=== PATIENT | female | born 1985 | race Caucasian/White ===

== ENCOUNTER 2021-02-23 20:08 | Emergency (ER) | payer OTHER, SELFPAY ==
--- NOTE | ~2021-02-23 | XR_ITS ---
EXAMINATION: XR HAND, RIGHT CLINICAL INFORMATION: Hit with softball with laceration and pain COMPARISON: 09/29/2019 TECHNIQUE: PA, lateral, and oblique views of the right hand. FINDINGS: The bones and soft tissues are normal. No fracture. Alignment is anatomic. Joint spaces are maintained. No erosions or soft tissue calcifications. XR/XR hand RT min 3V IMPRESSION: Normal right hand.
[2021-02-23 20:18] VITALS: BP 114/58; PULSE 90; RESP 18; TEMP 37.3; O2SAT 98; BMI 22.1
--- NOTE | 2021-02-23 21:29 | ED_ITS ---
HPI - Wound/Laceration General Chief Complaint: Wound/Laceration Stated Complaint: laceration Source: patient Mode of arrival: ambulatory Limitations: no limitations History of Present Illness HPI narrative: 35-year-old female with no significant past medical history presents with a laceration between the 4th and 5th fingers after a softball injury. Patient has a prior injury to the pinky finger years ago. Patient states it is difficult to move the finger and there is significant bruising and swelling to the 5th finger. She does not describe any other injuries, does not recall when her last Tdap vaccine was updated. Onset (ago): hour(s) (Within the hour of arrival) Extremity Location: right: hand (Laceration between 4th and 5th fingers) Place: outdoors Patient tetanus UTD: No Context: accidental Associated symptoms: pain Treatments prior to arrival: cold therapy and bandage Related Data Previous Rx's Medication Instructions Recorded oxycodone 5 mg PO Q8H PRN #7 cap 02/23/21 Allergies Allergy/AdvReac Type Severity Reaction Status Date / Time cimetidine [From [facility]] Allergy Unknown NAUSEA Verified 02/23/21 21:32 Review of Systems Review of Systems: Constitutional: No Fever, No Chills ENT/Mouth: No Ear Pain, No Hoarseness, No sore throat Eyes: No Eye Pain, No Swelling, No Redness, No Foreign Body Cardiovascular: No Chest Pain, No SOB Respiratory: No Cough, No Dyspnea Gastrointestinal: No Nausea, No Vomiting, No Diarrhea, No abdominal Pain Genitourinary: No Dysuria, No Hematuria Musculoskeletal: positive 4th and 5th right finger pain and swelling, No Myalgias Skin: Positive laceration between 4th and 5th finger of the right hand, No rash Neuro: No Weakness, No Numbness, No Paresthesias, No Loss of Consciousness, No Dizziness, No Headache Psych: No Anxiety/Panic, No Depression Heme/Lymph: no easy bruising, no Lymphadenopathy Endocrine: No Polyuria, No Polydipsia Yes all other systems are reviewed and are negative [facility] Past Medical History Attestation statement: The following information was validated with the patient. Source: old records reviewed Social History Social History Advance Directives: No Advance Directives Information Provided: No Physical Exam Vital Signs: Vital Signs: Last Vital Signs Temp 99.1 F 02/23/21 20:18 Pulse 90 02/23/21 20:18 Resp 18 02/23/21 20:18 BP 114/58 L 02/23/21 20:18 Pulse Ox 98 02/23/21 20:18 Body Mass Index 22.1 Appearance: Alert. Oriented X3. Mild distress. Eyes: Pupils equal, round and reactive to light. ENT: Pharynx normal. Neck: Normal inspection. Neck supple. CVS: Normal heart rate and rhythm. Pulses normal. Respiratory: No respiratory distress. Breath sounds normal. Abdomen: Soft and nontender. Skin: Skin warm and dry. Normal skin color. Normal skin turgor. Extremities: Full range of motion to all digits on right hand, no indication of tendon injury, strength 5/5, 2 cm laceration between the 4th and 5th fingers at the web space, no snuffbox tenderness, full range of motion to the wrist elbow and shoulder. Neuro: No motor deficit. No sensory deficit. Course Course Course Narrative: 35-year-old female with no significant past medical history presents with a laceration between 4th and 5th fingers on the right side with swelling and bruising noted to the 4th and 5th fingers. X-rays are negative for fracture. Prepped and draped in sterile fashion, refer to procedure note for full details, patient tolerated procedure well. Detailed description of wound care instructions. The injury is quite significant with bruising to 4th and 5th fingers radiating down to the metacarpals, will order oxycodone for home use. Detailed description regarding risks and benefits of opioids, patient does understand the dangers of taking this medication. Also referred to Dr. Funez, if pain persists or if she is unable to regain full range of motion she will call and request an appointment. Approximately 30 minutes after laceration repair, full range of motion, strength 5/5, and brisk capillary refill noted. No neurological deficits. Patient verbalized understanding of and agrees plan of care discharge home. Procedures Laceration Laceration 1: Site: hand Side (If applicable): right Size (cm): 2 Description: linear Depth: simple, single layer Local Anesthetic: lidocaine 2% Amount of anesthesia used (mL): 6 Pre-repair: wound explored, irrigated extensively and deep structures intact Skin layer closed with: nylon Size (cm): 4-0 Number of sutures: 6 Technique: simple, interrupted MDM - Wound/Laceration Differential Diagnosis Differential diagnosis: Likely laceration Medical Records Attestation: I reviewed the patient's medical records. Lab Data Attestation: I reviewed the patient's lab results. Imaging Data Right hand x-ray: Attestation: I personally reviewed and interpreted this imaging study as follows: Radiologist's impression: EXAMINATION: XR HAND, RIGHT CLINICAL INFORMATION: Hit with softball with laceration and pain COMPARISON: 09/29/2019 TECHNIQUE: PA, lateral, and oblique views of the right hand. FINDINGS: The bones and soft tissues are normal. No fracture. Alignment is anatomic. Joint spaces are maintained. No erosions or soft tissue calcifications. XR/XR hand RT min 3V IMPRESSION: Normal right hand. Discharge Plan Discharge Clinical Impression: Laceration Patient Disposition: Home, Self-Care Instructions: Finger Laceration (ED) Additional Instructions: You were evaluated for laceration sustained from a softball injury. We placed 6 sutures between your 4th and 5th fingers to your right hand. Please keep sutures in place for 10-14 days. You may return to any healthcare provider to have sutures removed. I prescribed oxycodone for pain management. This medication is a narcotic and has high risk for addiction and abuse. Do not drive or operate machinery while taking this medication. This medication can increase risk for falls, cause drowsiness, and constipation. Please use MiraLax and Colace as needed to help soften stools, drink plenty of fluids. If you notice that your finger is not moving properly, please follow-up with orthopedics. I referred you to Dr. Magi Funez. Thank you for choosing this emergency department for evaluation. Please follow-up with primary care physician as needed. Return to the emergency department for any new, concerning, or worsening symptoms. Prescriptions: New oxycodone 5 mg capsule 5 mg PO Q8H PRN (Reason: pain) Qty: 7 RF: 0 Referrals: Magi Funez MD [Physician] - 2 days (hand injury) Interventions: ED Discharge Assessment Last Done: 02/23/21 23:39 Discharge Date/Time: 02/23/21 23:44
[2021-02-23] MEDS: Lidocaine HCl 2 % MPF 5 ML VIAL 10 ML SUBCUT (21:42)
[2021-02-23] MEDS: Diphth,Pertus(ACell),Tet Adult 0.5 ML SYRINGE IM (21:42)
--- NOTE | 2021-02-23 22:00 | PC.NURSE ---
WOUNC CLEANSED WITH SALINE. PT TOLL WELL.
== END 2021-02-23 23:44 | disposition home or self-care (01) ==
PROVIDERS: Emergency Provider Internal Medicine
DX: S61.411A Laceration without foreign body of right hand, initial encounter (principal); W21.07XA Struck by softball, initial encounter; Y93.64 Activity, baseball; Y92.320 Baseball field as the place of occurrence of the external cause; Y99.9 Unspecified external cause status
CPT/HCPCS: 12002; 73130; 90471; 90715; 99284